=== PATIENT | male | born 1995 | race African-American/Black ===

== ENCOUNTER 2024-04-14 05:28 | Emergency (ER) | payer SELFPAY ==
[~2024-04-14] VITALS: Ht 170.2 cm; Wt 77.0 kg
[2024-04-14 05:32] VITALS: BP 149/94; PULSE 69; RESP 18; O2SAT 99
[2024-04-14] MEDS: ACETAMINOPHEN 500MG TABLET PO ONE (07:33)
== END 2024-04-14 08:43 ==
LOC: ER 05:28
DX: M25.532 Pain in left wrist (principal); M79.642 Pain in left hand; J45.909 Unspecified asthma, uncomplicated; Z65.3 Problems related to other legal circumstances; Z98.890 Other specified postprocedural states
CPT/HCPCS: 73110; 73120; 99284